=== PATIENT | male | born 1955 | race Caucasian/White ===

== ENCOUNTER 2017-08-11 10:23 | Emergency (ER) | payer OTHER ==
[~2017-08-11] VITALS: Ht 177.8 cm; Wt 136.1 kg
[2017-08-11 10:28] VITALS: BP 155/87
[2017-08-11] MEDS ORDERED: FLUTICASONE PRO16 GM NASB (11:31)
[2017-08-11] MEDS ORDERED: TRAZODONE HCL100 M1 PO (11:32)
[2017-08-11] MEDS ORDERED: METFORMIN HCL500 M3 PO (11:32)
[2017-08-11] MEDS ORDERED: DIPHENHYDRAMINE50 M1 PO (11:33)
[2017-08-11] MEDS ORDERED: FLUOXETINE HCL20 M2 PO (11:33)
[2017-08-11] MEDS ORDERED: LOSARTAN POTASS50 M1 PO (11:33)
[2017-08-11] MEDS ORDERED: PROAIR HFA8.5 GM INH ×2 (11:34→12:01)
--- NOTE | 2017-08-11 11:42 | ED INFLUENZA/URI COMPLAINT ---
History of Present Illness General Chief Complaint: Upper Respiratory Sx/Fever Stated Complaint: C/O INFECTION OF SINUS/LUNGS Source: patient, old records Exam Limitations: no limitations Vital Signs & Intake/Output Vital Signs & Intake/Output Vital Signs Date Time Temp Pulse Resp B/P B/P Pulse O2 O2 Flow FiO2 Mean Ox Delivery Rate 08/11 1151 Room Air 08/11 1028 98.5 94 18 155/87 97 Room Air Allergies Coded Allergies: NO KNOWN ALLERGIES (06/14/12) Reconcile Medications Albuterol Sulfate (Proair Hfa) 90 MCG HFA.AER.AD 2 PUF INH Q4-6 PRN PRN SHORTNESS OF BREATH (Reported) Albuterol Sulfate (Proair Hfa) 90 MCG HFA.AER.AD 2 PUF INH Q4-6 PRN PRN DYSPNEA Diphenhydramine HCl 50 MG CAPSULE 1 CAP PO QPM PRN SLEEP (Reported) Fluoxetine HCl 20 MG CAPSULE 1 CAP PO DAILY MENTAL HEALTH (Reported) Fluticasone Propionate 50 MCG/ACTUATION SPRAY.SUSP 2 SPRAY NASB DAILY ALLERGIES (Reported) Fluticasone Propionate (Flonase Allergy Relief) 50 MCG/ACTUATION SPRAY.SUSP 2 SPRAY INH DAILY SINUSITIS Levofloxacin (Levaquin) 750 MG TABLET 1 TAB PO DAILY bronchitis Losartan Potassium 50 MG TABLET 1 TAB PO DAILY HEART (Reported) Metformin HCl 500 MG TABLET 1 TAB PO DAILY DIABETES (Reported) Methylprednisolone. (Medrol) 4 MG TAB.DS.PK 1 DP PO AD bronchitis 6 on day 1 then reduce by one tablet daily until gone Promethazine HCl/Codeine (Prometh-Codein 6.25-10 MG/5 Ml) 6.25 MG-10 MG/5 ML (5 ML) SYRUP 10 ML PO Q6HR PRN COUGH Trazodone HCl 100 MG TABLET 2 TAB PO QPM SLEEP (Reported) Triage Note: 62 Y/O MALE C/O URI SYMPTOMS SINCE June HE WAS EVAL'D BY PMD MULTIPLE TIMES AND HAS BEEN ON APPROX 3-4 WEEK COURSE OF ANTIBIOTICS WITH GOOD RELIEF - "I FINISHED THEM AND WAS GREAT FOR ABOUT A WEEK". PT STATES SYMPTOMS STARTED TO RETURN APPROX TUES - NASAL CONGESTION, COUGH WITH "GREEN BROWN" SPUTUM AND NASAL DRAINAGE. PT DENIES CHANGES IN APPETITE/PO INTAKE. DENIES FEVERS. SPEAKING CLEARLY WITH NO DISTRESS NOTED, RA SAT 97%. AFEBRILE. Triage Nurses Notes Reviewed? yes Onset: Gradual Duration: minute(s): (`), INTERMITTEN X 2 MONTHS Timing: recent history Severity: moderate Severity Numbers: 5 Prior Episodes/Possible Cause: frequent episodes No Modifying Factors: none Associated Symptoms: cough, nasal congestion, nasal drainage, sinus infection HPI: 62-year-old male with history of hypertension diabetes presents complaining of a two-month history of intermittent sinus pressure congestion and rhinorrhea productive cough of green to brown sputum. He states he's been on 2 courses of Augmentin which have helped with his symptoms he last finished it last week and was feeling better up until 2 days ago. He denies any fevers or chills he also reports a sinus pressure rhinorrhea congestion. He ran out of his Flonase and is running low on his albuterol inhaler however states these were helping. The patient states every year he has similar episodes however is never lasted this long. He last saw his primary care physician for the same one month ago. No shortness of breath chest pain no fever chills weight loss hemoptysis abdominal pain nausea vomiting diarrhea. He smokes cigars. He is never required admission for similar episodes in the past. NO HISTOYR OF ASTHMA Or COPD. (Trinidad Aponte) Past History Travel History Traveled to [place] past 21 day No Medical History Any Pertinent Medical History? 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 No (Trinidad Aponte) Review of Systems Review of Systems Constitutional: Reports: see HPI. Comments Review of systems: See HPI, All other systems negative. Constitutional, no chills no fever, HEENT: no sore throat congestion, no ear pain Cardiovascular: No chest pain , no palpitation Skin: no rashes, no change in skin Respiratory: No dyspnea no cough GI: No nausea no vomiting, no diarrhea : No dysuria No hematuria, no frequency Muscle skeletal: No joint pain, no back pain, no neck pain, Neurologic: , no headache Heme/endocrine: No bruising Immunology: No lymphadenopathy (Mini WILKERSON,[place]) Physical Exam Physical Exam General Appearance: well developed/nourished, no apparent distress, alert, awake Ears, Nose, Throat: normal ENT inspection, moist mucous membrane Comments: Well-developed well-nourished patient in no apparent distress. Head/Face: Atraumatic, no maxillary/frontal sinus tenderness, no facial swelling Eyes: PERRL, EOMI, no conjunctival injection Ear:External auditory canal and Tympanic membranes clear, no erythema, no FB. Nose: atraumatic.Normal inspection: No bleeding Throat: Moist mucous membranes.Pharynx normal. No stridor/drooling or assymetry. No swelling or edema. Neck: Supple, no lymphadenopathy, FROM Back: FROM Cardiovascular: Regular rate and rhythms no murmur Respiratory: Chest nontender.There were no bony deformities, no asymmetry. No respiratory distress. Patient speaking in full complete sentences. Breath sounds clear to auscultation bilaterally: NO W/R/R Extremities: full range of motion Neuro: awake, alert, and oriented to person, place and time. There were no obvious focal neurologic abnormalities. Skin: Warm & dry;No appreciable rash on exposed skin Psych: Mood affect normal, normal memory normal judgment. Core Measures Sepsis Present: No Sepsis Focused Exam Completed? No (Mini WILKERSON,[place]) Progress Differential Diagnosis: influenza, otitis, pneumonia, pharyngitis, sinusitis Plan of Care: Orders Procedure Date/time Status XRY-CHEST XRAY, TWO VIEWS 08/11 1054 Active Diagnostic Imaging: Viewed by Me: Radiology Read. Discussed w/RAD: Radiology Read. Radiology Impression: PATIENT: TRINIDAD ADAMS PRESENT AGE: 62 PATIENT ACCOUNT NO: [id number] : 53 LOCATION: [facility] ORDERING PHYSICIAN: Tom WILKERSON SERVICE DATE: 08/11/17 EXAM TYPE: RAD - XRY-CHEST XRAY, TWO VIEWS EXAMINATION: XR CHEST CLINICAL INFORMATION: 62-year- old man with cough. COMPARISON: 06/14/2012 chest radiograph TECHNIQUE: 2 views of the chest were obtained. FINDINGS: The lungs are generally well expanded, without evidence of focal consolidation or overt pulmonary edema. Heart size is within the range of normal. There are no pleural effusions. IMPRESSION: No radiographic evidence of an acute cardiopulmonary process. DICTATED BY: Sarah Whitehead MD DATE/TIME DICTATED:08/11/171139 SAP BUSINESS ANALYST:FERNANDO DATE/TIME TRANSCRIBED:08/11/171139 CONFIDENTIAL, DO NOT COPY WITHOUT APPROPRIATE AUTHORIZATION. <Electronically signed in Other Vendor System> SIGNED BY: Sarah Whitehead MD 08/11/17 1144 Initial ED EKG: none (Trinidad Aponte) Departure Departure Time of Disposition: 1158 Disposition: HOME OR SELF CARE Condition: Stable Clinical Impression Primary Impression: Bronchitis Referrals: Kami GODFREY,[facility] (PCP/Family) Additional Instructions: follow up with dr aguayo as discussed today. levaquin, flonase, albuterol inhaler, medrol dose sergey as directed. promethazine with codeine for cough- use caution this may make you drowsy. these were sent to the [facility]. return with any concerns Departure Forms: Customer Survey General Discharge Information Prescriptions: Current Visit Scripts Levofloxacin (Levaquin) 1 TAB PO DAILY #10 TAB Methylprednisolone. (Medrol) 1 DP PO AD #1 DP 6 on day 1 then reduce by one tablet daily until gone Promethazine HCl/Codeine (Prometh-Codein 6.25-10 MG/5 Ml) 10 ML PO Q6HR PRN COUGH #150 ML Fluticasone Propionate (Flonase Allergy Relief) 2 SPRAY INH DAILY #1 UNIT Albuterol Sulfate (Proair Hfa) 2 PUF INH Q4-6 PRN PRN DYSPNEA #1 INHAL (Trinidad Aponte) PA/ELECTRO MECHANICAL ENGINEER Co-Sign Statement Statement: ED Attending supervision documentation- [] I saw and evaluated the patient. I have also reviewed all the pertinent lab results and diagnostic results. I agree with the findings and the plan of care as documented in the PA's/ELECTRO MECHANICAL ENGINEER's documentation. [X] I have reviewed the ED Record and agree with the PA's/ELECTRO MECHANICAL ENGINEER's documentation. [] Additions or exceptions (if any) to the PAs/ELECTRO MECHANICAL ENGINEER's note and plan are summarized below: [] (Ramses GODFREY,Yaima)
[2017-08-11] MEDS ORDERED: PROMETH-CODEIN 65 ML PO (12:01)
[2017-08-11] MEDS ORDERED: LEVAQUIN750 M1 PO (12:01)
[2017-08-11] MEDS ORDERED: FLONASE ALLERG9.9 ML INH (12:01)
[2017-08-11] MEDS ORDERED: MEDROL4 M2 PO (12:01)
== END 2017-08-11 12:01 ==
LOC: ERH 10:23
DX: J40 Bronchitis, not specified as acute or chronic (principal); F17.290 Nicotine dependence, other tobacco product, uncomplicated
CPT/HCPCS: 71046